=== PATIENT | female | born 1990 | race Caucasian/White ===

== ENCOUNTER → 2021-12-02 | Outpatient (CLI) | payer BC, SELFPAY ==
--- NOTE | 2021-12-02 15:04 | CT_ITS ---
STUDY: CT ABDOMEN AND PELVIS WITH CONTRAST REASON FOR EXAM: Female, 31 years old. Change in bowel pattern. Bloating for one year. Inconsistent bowel habits since IUD placed. The IUD is since been removed. RADIATION DOSAGE (If Supplied By Facility): CTDIvol = ( 12.63 ) mGy, DLP = ( 765.07 ) mGycm TECHNIQUE: Transaxial images were obtained from the dome of the diaphragm to the symphysis pubis with oral contrast. 100 mL of ISOVUE 370 was administered. Sagittal and coronal images were reconstructed. Individualized dose optimization techniques were used for this CT. COMPARISON: None. FINDINGS: The visualized lung bases are unremarkable. The visualized portions of the heart are within normal limits. Normal liver. Normal gallbladder and extrahepatic biliary system. Normal spleen. Normal pancreas. Normal bilateral adrenal glands. Normal right kidney. Normal left kidney. Normal ureters. Normal visualized stomach. Normal small intestine. Feces seen throughout nondistended colon. There is no mass or obstruction. The appendix is visualized and appears normal. Normal abdominal aorta. Normal inferior vena cava. Normal retroperitoneum. Normal urinary bladder. Normal uterus. Question fluid lower uterine cervical canal. No evidence of mass. There is a 1.3 cm cyst versus dominant follicle in the left ovary. Normal right ovary. No pelvic lymphadenopathy. No free air or free cavity. Normal abdominal wall. Minimal degenerative changes of the lumbar spine. CT/Abdomen/Pelvis WITH Contrast IMPRESSION: 1. Increased colonic feces. Question constipation. 2. Left ovarian cyst versus dominant follicle. 3. Question prominence lower uterine and cervical canal. Question fluid. 4. Otherwise normal CT of the abdomen and pelvis. Electronically Signed: Mario Prakash DO at 18:49 EDT ,
[2021-12-02 15:35] LABS: CREATININE FINGERSTICK < 0.9 mg/dL (0.55-1.02); EGFR FINGERSTICK > 60.0000 mL/min (>60)
[2021-12-02 17:20] LABS: Bilirubin, Direct 0.32 mg/dL (0.00-0.30)
[2021-12-04 15:08] LABS: Endomysial Antibody IgA Negative (Negative)
[2021-12-05 17:47] LABS: Immunoglobulin A 126 mg/dL (87-352); t-Transglutaminase IgA <2 U/mL (0-3)
== END | disposition home or self-care (01) ==
PROVIDERS: PCP Student in an Organized Health Care Education/Training Program; Visit Provider Nurse Practitioner Adult Health
DX: R19.8 Other specified symptoms and signs involving the digestive system and abdomen (principal); R10.9 Unspecified abdominal pain; E80.6 Other disorders of bilirubin metabolism; Z80.0 Family history of malignant neoplasm of digestive organs
CPT/HCPCS: 36415; 74177; 82247; 82248; 82784; 83516; 86255; Q9967

== ENCOUNTER 2022-02-13 06:18 | Day surgery (SDC) | payer BC, SELFPAY ==
[2022-02-13] MEDS: Lactated Ringers 1,000 ML 15 ML IV (06:51)
[2022-02-13 06:53] VITALS: BP 125/80; PULSE 90; RESP 18; TEMP 36.6; O2SAT 98; BMI 29.7
[2022-02-13 07:13] LABS: Internal QC Validated? YES +Cl - CLEAR BKGD; Pregnancy, Serum, hCG Quali. NEGATIVE Negative
--- NOTE | 2022-02-13 07:28 | HP.PCM_ITS ---
History and Physical Date of Admission: 02/13/22 31 F who presents to the office today for alternating diarrhea and constipation. She was also having abdominal bloating but that resolved when IUD was removed. For the bowels she has tried probiotic, collagen, bone broth w/o relief. She uses [employer], she notes she doesn't get enough fiber. Intermittent heartburn, no acid reflux, no dysphagia. Bloating was upper abdomen, felt hard to the touch. No abdominal pain since the bloating resolved. Bloating now usually only with period. Issues with constipation since childhood. Diarrhea began about 1.5 yrs ago. Sometimes feels like diarrhea is on top of constipation. Can have both diarrhea and constipation on the same day. Has BM 2-3x per day on a good day, could be more with diarrhea, or a couple of days between BMs. With diarrhea the stool can be watery and loose. No melena or hematochezia. Can have cramps with the diarrhea. Weight is stable. 08/23/21 RUQ US negative for GI concerns 11/13/21 HIDS gallbladder ejection fraction 85%, trace enterogastric reflux 10/25/2021 labs: Normal CBC, total bilirubin 2.0, alk phos 64, AST 16, ALT 18, TSH 0.89, B12 612, vitamin D 39, Father has stomach cancer, adenocarcinoma, getting chemo which is keeping it under control, he was told his children should have genetic testing so she is re questing that PMH: HTN, hyperbilirubinemia, hyperlipidemia PSH: ROS Const Constitutional: Positive for fatigue; No fever(s), frequent falls, headache(s) or weight change ENT ENT: No headache(s) or difficulty swallowing Cardio Cardiology: No leg pain with exertion Gastro GI: Positive for abdominal pain, bloating, constipation and diarrhea; No change in bowel habits, heartburn, difficulty swallowing, Vomiting blood/hematemesis, Blood in stool, nausea/dyspepsia or vomiting Musc Musculoskeletal: No abnormal gait, joint pain, back pain, joint swelling, muscle cramps, muscle weakness, numbness, stiffness, tingling, Arthritis, sciatica, leg pain at night or leg pain with exertion Skin Skin: No dry skin, lesions, itchy eyes or rash Neuro Neurology: No abnormal gait, dizziness, frequent falls, headache(s), numbness, tingling, tremor(s), Increased tone in limbs, paralysis or seizures Psych Psychiatric: No anxiety, No depression, No paranoia, No Behavioral Problems, No Compulsive Behavior, No hyperactivity, No inattentiveness, No obsessions/compulsions, No Temper Tantrums and No suicidal ideation Endo Endocrine: Positive for fatigue; No weight change Aller/Imm Allergy/Immunologic: No itchy eyes Ford/Lymp Hematologic/Lymphatic: No easy bleeding or easy bruising Exam Const General: cooperative, healthy appearing and comfortable Nutritional Appearance: overweight Orientation: alert, awake and oriented x3 HENMT Head: normal to inspection Eyes General: appearance normal, both eyes and all related structures Neck Neck: normal visual inspection Resp Effort & Inspection: normal respiratory effort GI Inspection: normal to inspection Palpation: soft, no hepatosplenomegaly, no masses and nontender Quality Reporting Tobacco Screening ([facility]) Smoking Status: Former smoker Assessment and Plan Assessment and Plan (1) Altered bowel function: ?Status:?Acute ?Plan: 31-year-old female with alternating diarrhea and constipation.? Long history of constipation but the diarrhea is newer.? She has intermittent heartburn.? Her father has stomach cancer, possibly adenocarcinoma.? She has intermittent abdominal bloating and abdominal pain.? She has a normal right upper quadrant ultrasound, normal HIDA scan other than trace enterogastric reflux. CT abdomen pelvis with oral and IV EGD and colonoscopy Labs to be ordered: Total bili and direct? bili, celiac Will recommend genetic counselor for genetic testing considering her father's history of stomach cancer Try metamucil as first-line therapy to help with alternating diarrhea and constipation (2) Abdominal pain: ?Status:?Acute (3) Hyperbilirubinemia: ?Status:?Acute ?Plan: Possibility of Gilbert's syndrome, will check total bilirubin and conjugated b ilirubin (4) FH: stomach cancer: ?Status:?Acute ?Plan: Will recommend referral to genetic counselor for their advice on testing related to her father's history of stomach cancer ? ? ? Orders: Orders Bilirubin, Direct Today E80.6 - Other disorders of bilirubin metabolism, R19.8 - Other specified symptoms and signs involving the digestive system and abdomen ? Total Bilirubin Today E80.6 - Other disorders of bilirubin metabolism, R19.8 - Other specified symptoms and signs involving the digestive system and abdomen ? Celiac Disease Profile Today E80.6 - Other disorders of bilirubin metabolism, R19.8 - Other specified symptoms and signs involving the digestive system and abdomen ? Abdomen/Pelvis WITH Contrast 11/25/21 E80.6 - Other disorders of bili tom metabolism, R10.9 - Unspecified abdominal pain, R19.8 - Other specified symptoms and signs involving the digestive system and abdomen, Z80.0 - Family history of malignant neoplasm of digestive organs ? I have examined the patient and the H&P has been reviewed. There are no clinical changes since date of exam.
--- NOTE | 2022-02-13 07:30 | COLBX_PTH ---
PATIENT: ESTEBAN CLEANING #:[id number] LOC: EN U#:[id number] AGE/SX: 31/F ROOM: RE02/13/[address]: Dr. Dmitriy Trinh DO : 1990 BED: DIS: 02/13/2022 SPEC #: [id number] RECD: 02/13/22 13:19 STATUS: CARIDAD CONRAD #: [id number] JULIANA: 02/13/22 07:[address]: Dmitriy Trinh DEPT: SURGICAL PATHOLOGY RECD BY: Lizbet White ENTERED: 02/14/22 09:06 SP TYPE: COLON BX OTHR DR: Dr. Anthony Little DO Tissues: A - Duodenum, NOS B - Gastric mucous membrane C - Esophagus, NOS D - Ileum, NOS E - COLON BIOPSY Procedures: Special Stain Group II Surgery Specimen Level IV Alcian Blue/PAS (control) HEADER OPERATION: [place] [place] PRE-OP DIAGNOSIS: Altered bowel function, abdominal pain, hyperbilirubinemia TISSUE SUBMITTED: A ? Duodenum biopsy, B ? Antrum biopsy for histo and H. pylori, C ? Distal esophagus biopsy, D ? Terminal ileum, E ? Random colonic MICROSCOPIC DIAGNOSIS A. Duodenum, biopsy: No pathologic change. B. Gastric antrum, biopsy: Chronic gastritis. See comment. C. Distal esophagus, biopsy: Gastroesophageal junctional mucosa with mild chronic inflammation. Focal changes of reflux. No evidence of goblet cell metaplasia. See comment. D. Terminal ileum, biopsy: No pathologic change. E. Colon, random biopsy: Melanosis coli. AM:jes 02/18/2022 COMMENT B. The results of immunohistochemistry for Helicobacter pylori will be reported separately ([id number]). C. Alcian blue/PAS stain with matched control supports the above diagnosis. MICROSCOPIC DESCRIPTION Slides are reviewed. GROSS DESCRIPTION A - Received in fixative is one container labeled with the patient's name and designated duodenum biopsy. The specimen consists of one irregular fragment of light cruz soft tissue that measures 0.3 x 0.3 x 0.1 cm. The specimen is totally submitted in one cassette. B - Received in fixative is one container labeled with the patient's name and designated antrum biopsy. The specimen consists of one irregular fragment of light cruz soft tissue that measures 0.6 x 0.3 x 0.1 cm. The specimen is totally submitted in one cassette. C - Received in fixative is one container labeled with the patient's name and designated distal esophagus biopsy. The specimen consists of multiple irregular fragments of light cruz soft tissue that in aggregate measure 1 x 0.4 x 0.1 cm. The specimen is totally submitted in one cassette. D - Received in fixative is one container labeled with the patient's name and designated terminal ileum biopsy. The specimen consists of multiple irregular fragments of light cruz soft tissue that in aggregate measure 1 x 0.3 x 0.1 cm. The specimen is totally submitted in one cassette. E - Received in fixative is one container labeled with the patient's name and designated random colonic biopsy. The specimen consists of multiple irregular fragments of light cruz soft tissue that in aggregate measure 2 x 0.5 x 0.1 cm. The specimen is totally submitted in one cassette. / SJ:rg 02/14/2022 TC:3 CPT: 75609 x5, 75715
--- NOTE | 2022-02-13 07:30 | IMM_PTH ---
PATIENT: ESTEBAN CLEANING #:[id number] LOC: ANNY U#:[id number] AGE/SX: 31/F ROOM: RE02/13/[address]: Dr. Dmitriy Trinh DO : 1990 BED: DIS: 02/13/2022 SPEC #: [id number] RECD: 02/14/22 08:48 STATUS: CARIDAD RERocio #: [id number] JULIANA: 02/13/22 07:[address]: Dmitriy Trinh DEPT: IMMUNOHISTOCHEMISTRY RECD BY: Kerry Justice ENTERED: 02/14/22 08:48 SP TYPE: IMMUNO OTHR DR: Dr. Anthony Little DO Tissues: B - Stomach, NOS Procedures: H Pylori (initial) PHYSICIAN & INSTITUTION [place] [id number] SPECIMEN INFORMATION: Tissue Source: B ? Antrum biopsy Clinical Info: Altered bowel function, abdominal pain, hyperbilirubinemia Specimen Number: [id number] CPT code: 54974 METHODOLOGY: Deparaffinized sections of prefer/formalin-fixed tissue or PAP/DQ stained slides are incubated with monoclonal/polyclonal antibodies/oligonucleotide probes. Localization is made via biotin free immunoperoxidase method. Appropriate controls are performed and reacted as expected. Results on target cell population are indicated in the following table: RESULTS: ANTIBODY / CLONE RESULT Block B H Pylori (polyclonal) negative These tests were developed and their performance characteristics determined by [facility]. They may not have been cleared or approved by the U.S. Food and Drug Administration. The FDA has determined that such clearance or approval is not necessary. The above immunohistochemical/dualISH markers are ordered and reviewed by the Pathologist. INTERPRETATION: B. Antrum, biopsy: Negative for Helicobacter pylori organisms. AM:jes 02/18/2022
[2022-02-13 07:56] VITALS: BP 125/80; BP 99/73; PULSE 96; RESP 16; TEMP 36.9; O2SAT 96
[2022-02-13 08:00] VITALS: BP 102/83; BP 125/80; PULSE 90; RESP 16; O2SAT 95
--- NOTE | 2022-02-13 08:00 | OP.EGD_ITS ---
Patient Name: Laura Cunningham Procedure Date: 02/13/2022 7:23 AM Date of : 1990 Age: 31 Procedure: Upper GI endoscopy Indications: Epigastric abdominal pain, Suspected esophageal reflux, Failure to respond to medical treatment Providers: Dmitriy Trinh DO Referring MD: Anthony Little Do Medicines: Monitored Anesthesia Care Patient Profile: This is a 31 year old female. Refer to note in patient chart for documentation of history and physical. Patient has symptoms of chronic abdominal cramping, chronic abdominal distention, chronic global abdominal pain, chronic dyspepsia and chronic nausea. Complications: No immediate complications. Procedure: Pre-Anesthesia Assessment: - Prior to the procedure, a History and Physical was performed, and patient medications and allergies were reviewed. The risks and benefits of the procedure and the sedation options and risks were discussed with the patient. All questions were answered and informed consent was obtained. Patient identification and proposed procedure were verified by the physician in the pre-procedure area. Mental Status Examination: alert and oriented. Airway Examination: normal oropharyngeal airway and neck mobility. Respiratory Examination: clear to auscultation. CV Examination: normal. Prophylactic Antibiotics: The patient does not require prophylactic antibiotics. Prior Anticoagulants: The patient has taken no previous anticoagulant or antiplatelet agents. ASA Grade Assessment: II - A patient with mild systemic disease. After reviewing the risks and benefits, the patient was deemed in satisfactory condition to undergo the procedure. The anesthesia plan was to use monitored anesthesia care (MAC). Immediately prior to administration of medications, the patient was re-assessed for adequacy to receive sedatives. The heart rate, respiratory rate, oxygen saturations, blood pressure, adequacy of pulmonary ventilation, and response to care were monitored throughout the procedure. The physical status of the patient was re-assessed after the procedure. After obtaining informed consent, the endoscope was passed under direct vision. Throughout the procedure, the patient's blood pressure, pulse, and oxygen saturations were monitored continuously. The pediatric colonoscope was introduced through the mouth, and advanced to the second part of duodenum. The upper GI endoscopy was accomplished without difficulty. The patient tolerated the procedure well. Scope In: 7:33:43 AM Scope Out: 7:38:30 AM Total Procedure Duration Time 0 hours 4 minutes 47 seconds Findings: LA Grade A (one or more mucosal breaks less than 5 mm, not extending between tops of 2 mucosal folds) esophagitis with no bleeding was found 37 to 38 cm from the incisors. Biopsies were taken with a cold forceps for histology. Verification of patient identification for the specimen was done. Estimated blood loss was minimal. A small hiatal hernia was present. Patchy mildly erythematous mucosa without bleeding was found in the gastric antrum. Biopsies were taken with a cold forceps for histology. Verification of patient identification for the specimen was done. Estimated blood loss was minimal. Mildly erythematous mucosa without active bleeding and with no stigmata of bleeding was found in the first portion of the duodenum. Biopsies were taken with a cold forceps for histology. Verification of patient identification for the specimen was done. Estimated blood loss was minimal. Impression: - LA Grade A reflux esophagitis. Biopsied. - Small hiatal hernia. - Erythematous mucosa in the antrum. Biopsied. - Erythematous duodenopathy. Biopsied. Recommendation: - Discharge patient to home. - Resume previous diet. - Continue present medications. -Protonix 40 mg p.o. twice daily x4 weeks, then once a day for 4 weeks. - Await pathology results. Procedure Code(s): --- Professional --- 20371, Esophagogastroduodenoscopy, flexible, transoral; with biopsy, single or multiple CPT copyright 2017 [employer]. All rights reserved. The codes documented in this report are preliminary and upon refueling ramp attendant review may be revised to meet current compliance requirements. Dmtiriy Trinh DO 02/13/2022 8:00:06 AM This report has been signed electronically. Number of Addenda: 0 Note Initiated On: 02/13/2022 7:23 AM
--- NOTE | 2022-02-13 08:00 | OP.CCLET_ITS ---
02/13/2022 Anthony Little Do Re : Upper GI endoscopy procedure for Laura Cunningham [place] This procedure was performed on January. My impressions and recommendations are as follows: Impressions : - LA Grade A reflux esophagitis. Biopsied. - Small hiatal hernia. - Erythematous mucosa in the antrum. Biopsied. - Erythematous duodenopathy. Biopsied. Recommendations : - Discharge patient to home. - Resume previous diet. - Continue present medications. -Protonix 40 mg p.o. twice daily x4 weeks, then once a day for 4 weeks. - Await pathology results. My findings are described in the full procedure note, which is enclosed. If I can be of further assistance, please feel free to contact me at . Sincerely, Dmitriy Trinh, 02/13/2022 8:00:06 AM This report has been signed electronically.
--- NOTE | 2022-02-13 08:03 | OP.CCLET_ITS ---
02/13/2022 Anthony Little Do Re : Colonoscopy procedure for Laura Cunningham [place] This procedure was performed on January. My impressions and recommendations are as follows: Impressions : - Congested mucosa in the sigmoid colon, in the descending colon, at the splenic flexure and in the ascending colon. Biopsied. - The examined portion of the ileum was normal. Biopsied. Recommendations : - Discharge patient to home. - Resume previous diet. - Continue present medications. - Await pathology results. - Repeat colonoscopy in 10 years for screening purposes. My findings are described in the full procedure note, which is enclosed. If I can be of further assistance, please feel free to contact me at . Sincerely, Dmitriy Trinh, 02/13/2022 8:02:41 AM This report has been signed electronically.
--- NOTE | 2022-02-13 08:03 | OP.COLON_ITS ---
Patient Name: Laura Cunningham Procedure Date: 02/13/2022 7:38 AM Date of : 1990 Age: 31 Procedure: Colonoscopy Indications: Generalized abdominal pain, Clinically significant diarrhea of unexplained origin Providers: Dmitriy Trinh DO Referring MD: Anthony Little Do Medicines: Monitored Anesthesia Care Patient Profile: This is a 31 year old female. Refer to note in patient chart for documentation of history and physical. Patient has symptoms of chronic abdominal cramping, chronic abdominal distention, chronic global abdominal pain, chronic dyspepsia and chronic nausea. Last Colonoscopy: none. The patient's first colonoscopy is today. Complications: No immediate complications. Procedure: Pre-Anesthesia Assessment: - Prior to the procedure, a History and Physical was performed, and patient medications and allergies were reviewed. The risks and benefits of the procedure and the sedation options and risks were discussed with the patient. All questions were answered and informed consent was obtained. Patient identification and proposed procedure were verified by the physician in the pre-procedure area. Mental Status Examination: alert and oriented. Airway Examination: normal oropharyngeal airway and neck mobility. Respiratory Examination: clear to auscultation. CV Examination: normal. Prophylactic Antibiotics: The patient does not require prophylactic antibiotics. Prior Anticoagulants: The patient has taken no previous anticoagulant or antiplatelet agents. ASA Grade Assessment: II - A patient with mild systemic disease. After reviewing the risks and benefits, the patient was deemed in satisfactory condition to undergo the procedure. The anesthesia plan was to use monitored anesthesia care (MAC). Immediately prior to administration of medications, the patient was re-assessed for adequacy to receive sedatives. The heart rate, respiratory rate, oxygen saturations, blood pressure, adequacy of pulmonary ventilation, and response to care were monitored throughout the procedure. The physical status of the patient was re-assessed after the procedure. After I obtained informed consent, the scope was passed under direct vision. Throughout the procedure, the patient's blood pressure, pulse, and oxygen saturations were monitored continuously. The pediatric colonoscope was introduced through the anus and advanced to the cecum, identified by appendiceal orifice and ileocecal valve. The colonoscopy was performed without difficulty. The patient tolerated the procedure well. The quality of the bowel preparation was good. Scope In: 7:39:51 AM Scope Withdrawal Time 0 hours 8 minutes 51 seconds Scope Out: 7:51:37 AM Total Procedure Duration Time 0 hours 11 minutes 46 seconds Findings: The perianal and digital rectal examinations were normal. An area of mildly congested mucosa was found in the sigmoid colon, in the descending colon, at the splenic flexure and in the ascending colon. Biopsies were taken with a cold forceps for histology. Verification of patient identification for the specimen was done. Estimated blood loss was minimal. The terminal ileum appeared normal. Biopsies were taken with a cold forceps for histology. Verification of patient identification for the specimen was done. Estimated blood loss was minimal. Impression: - Congested mucosa in the sigmoid colon, in the descending colon, at the splenic flexure and in the ascending colon. Biopsied. - The examined portion of the ileum was normal. Biopsied. Recommendation: - Discharge patient to home. - Resume previous diet. - Continue present medications. - Await pathology results. - Repeat colonoscopy in 10 years for screening purposes. Procedure Code(s): --- Professional --- 99912, Colonoscopy, flexible; with biopsy, single or multiple CPT copyright 2017 [employer]. All rights reserved. The codes documented in this report are preliminary and upon product support representative review may be revised to meet current compliance requirements. Dmitriy Trinh DO 02/13/2022 8:02:41 AM This report has been signed electronically. Number of Addenda: 0 Note Initiated On: 02/13/2022 7:38 AM
[2022-02-13 08:05] VITALS: BP 125/80; BP 126/81; PULSE 75; RESP 16; O2SAT 96
[2022-02-13 08:11] VITALS: BP 114/86; BP 125/80; PULSE 68; RESP 16; TEMP 36.8; O2SAT 98
[2022-02-13 08:38] VITALS: BP 125/80
== END 2022-02-13 08:37 | disposition home or self-care (01) ==
LOC: EN 06:22 → AC 06:23
PROVIDERS: Anesthesiology; PCP Student in an Organized Health Care Education/Training Program; Referring Provider Student in an Organized Health Care Education/Training Program; Visit Provider Internal Medicine Gastroenterology
PROC: 0DJD8ZZ Inspection of Lower Intestinal Tract, Via Natural or Artificial Opening Endoscopic (ICD-10-PCS; CPT 45378; principal; 2022-02-13 07:25)
DX: K29.50 Unspecified chronic gastritis without bleeding (principal); K63.89 Other specified diseases of intestine; K44.9 Diaphragmatic hernia without obstruction or gangrene; K21.00 Gastro-esophageal reflux disease with esophagitis, without bleeding; I10 Essential (primary) hypertension; Z79.899 Other long term (current) drug therapy; Z80.0 Family history of malignant neoplasm of digestive organs; Z87.891 Personal history of nicotine dependence
CPT/HCPCS: 45380; 43239; 84703; 88305; 88313; 88342; J7120; J2405

== ENCOUNTER → 2022-07-30 | Outpatient (CLI) | payer BC, SELFPAY ==
[2022-07-30 12:34] LABS: Absolute Lymphocyte Count 1.97 X10^3/uL (0.83-4.51); Absolute Neutrophil Count 3.1 X10^3/uL (2.0-7.7); Basophil# 0.04 X10^3/uL; Basophil% 0.7 % (0-1); Eosinophil# 0.16 X10^3/uL; Eosinophils% 2.8 % (0-5); Hematocrit 39.9 % (37-47); Hemoglobin 14.3 g/dL (12.0-15.0); Lymphocyte # 1.97 X10^3/ul (0.83-4.51); Lymphocyte % 34.2 % (19-41); Mean Corp Hgb Conc 35.8 g/dL (32-36); Mean Corpuscular Volume 92.1 fL (81-99); Mean Platelet Vol. 9.7 fl (6.2-12.0); Monocyte# 0.51 X10^3/uL; Monocyte% 8.9 % (0-10); NRBC Flagged by Analyzer 0 % (0-5); Neutrophil # 3.07 X10^3/uL (2.7-7.7); Neutrophil % 53.2 % (47-70); Platelet Count 232 K/mm3 (150-450); RBC Distribution Width CV 11.5 % (11.6-14.6); RET-HE 35.4 pg (30-35); Red Blood Count 4.33 M/mm3 (4.2-5.4); Reticulocyte Count 1.93 % (0.5-1.5); White Blood Count 5.8 K/mm3 (4.4-11.0)
[2022-07-30 13:14] LABS: ALB/GLOB Ratio 1.1 RATIO (0.9-2.4); AST(SGOT) 22 U/L (15-37); Alanine Aminotransfer ALT/SGPT 28 U/L (13-56); Albumin, Serum 4.1 g/dL (3.2-5.0); Alkaline Phosphatase 63 U/L (45-117); Anion Gap 10 (5-15); BUN 11 mg/dL (7-18); BUN/Creat Ratio 15.3 RATIO (10-20); Bilirubin, Direct 0.24 mg/dL (0.00-0.30); Calcium,Total 9.4 mg/dL (8.5-10.1); Chloride 104 mmol/L (98-107); Creatinine, Serum 0.72 mg/dL (0.55-1.02); EST Glomerular Filtration Rate 99 mL/min (>60); Est Glom Filt Rate - Afr Amer 119 mL/min (>60); Globulin 3.6 g/dL (2.2-4.2); Glucose 97 mg/dL (74-106); LDH 195 U/L (84-246); Protein, Total 7.7 g/dL (6.4-8.2); Sodium Level 136 mmol/L (136-145)
[2022-07-31 05:07] LABS: Haptoglobin 148 mg/dL (33-278)
== END | disposition home or self-care (01) ==
PROVIDERS: PCP Student in an Organized Health Care Education/Training Program; Referring Provider Nurse Practitioner Adult Health; Visit Provider Nurse Practitioner Adult Health
DX: E80.6 Other disorders of bilirubin metabolism (principal)
CPT/HCPCS: 36415; 80053; 82248; 83010; 83615; 85025; 85045

== ENCOUNTER 2023-03-09 07:26 | Day surgery (SDC) | payer BC, SELFPAY ==
--- OUTSIDE RECORDS SUMMARY | 2023-03-09 07:31 | XMS RPT_ITS | CCD ---
Author Name Unknown Address [address] [place] [address] Organization [facility] Care Team Providers Care Experimental Technician Name Role Phone VIVIANE MENDEZ, DR BONILLA Primary Care Physician [phone] Chad Pan DO Primary Care Provider [phone] Anuj Umanzor MD Unavailable Brendan Kenney CGC Unavailable UnavailCHAD Batres Primary Care Unavailable CHAD PAN Referring Unavailable BRENDAN KENNEY Attending Unavailable ANUJ UMANZOR Attending Unavailable ANUJ UMANZOR Referring Unavailable CHAD PAN Primary Care Unavailable VIVIANE MENDEZ, DR BONILLA Attending Unavailable ROMAR DO, DR BONILLA Primary Care Unavailable ROMAR DO, DR BONILLA Attending Unavailable VIVIANE MENDEZ, DR BONILLA Primary Care Unavailable VIVIANE MENDEZ, DR BONILLA Primary Care Unavailable JALYN OTERO-JENNIFER ELDER Attending Lanette vailable Medications Current Medications Medication Drug Class(es) Dates Sig (Normalized) Sig (Original) amLODIPine 5 mg oral tablet (1 source) Dihydropyridine Calcium Channel John Start: 01-29-2021 amLODIPine 5 mg oral tablet Dose : 5 mg = 1 tab(s), Oral, qDay, Okay to substitute capsules if covered by insurance, # 90 tab(s), 0 Refill(s), Pharmacy: [facility], 161.5, cm, 11/06/20 8:01:00 EDT, Height, kg, 11/06/20 8:01:00 EDT, Dosing Weight Start Date: 01/29/21 Status: Ordered amLODIPine 5 mg / benazepril hydrochloride 10 mg oral capsule (3 sources) Dihydropyridine Calcium Channel John, Angiotensin Converting Enzyme Inhibitor Start: 03-14-2022 End: 09-10-2022 take 1 capsule by mouth once daily amlodipine-benaz epril 5 mg-10 mg oral capsule Dose = 1 cap(s), Oral, qDay, # 90 cap(s), 1 Refill(s), Pharmacy: [facility] #[id number], 161.5, cm, 03/11/22 16:06:00 EST, Height, kg, 03/11/22 16:06:00 EST, Dosing Weight Start Date: 03/14/22 Stop Date: 09/10/22 Status: Ordered Completed/Discontinued Medications Medication Drug Class(es) Dates Sig (Normalized) Sig (Original) hydrOXYzine hydrochloride 50 mg oral tablet (4 sources) Antihistamine Start: 05-16-2020 End: 05-23-2020 hydrOXYzine hydrochloride 50 mg oral tablet Dose : 50 mg = 1 tab(s), Oral, QID, PRN as needed for anxiety, Do not drive, operate heavy machinery, or drink alcohol while on this medication., # 28 tab(s), 0 Refill(s), Pharmacy: [facility] 161, cm, 05/16/20 10:56:00 EDT, Height, kg,... 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 Anxiety disorders (4 sources) Panic attack 05-21-2020 Chronic Cardiac dysrhythmias (4 sources) Palpitations 04-25-2020 Episodic Conditions associated with dizziness or vertigo (4 sources) Lightheadedness 04-25-2020 Episodic Diabetes mellitus without complication (4 sources) Hyperglycemia 04-29-2020 Episodic Diseases of mouth; excluding dental (4 sources) Lesion of oral mucosa 08-12-2019 Episodic Disorders of lipid metabolism (7 sources) Hyperlipidemia; Translations: [Mixed hyperlipidemia] 01-28-2019 Chronic Results Test Name Value Interpretation Reference Range Facil ity Encounters Encounter Date Encounter Type Care Provider Facility Start: 09-17-[address] CHAD PAN DO Facili ty:B Start: 07-19-2022 End: 07-20-[address] CHAD PAN DO Facility:B Start: 07-19-2022 End: 07-19-[address] CHAD PAN DO [facility] Start: 05-22-2022 End: 05-23-2022 ambulatory ANUJ UMANZOR [facility] Start: 05-22-2022 End: 05-22-2022 Subsequent hospital visit by physician Anuj Umanzor MD Work Phone: [facility] Procedures Date Procedure Procedure Detail Performing Clinician Start: 05-29-[address] CHAD PAN DO Colonoscopy DR CHAD Barker Dilation of urethra DR CHAD PAN DO Esophagogastroduoden oscopy gastric outlet reduction DR CHAD PAN DO Fracture of upper limb (disorder) DR CHAD PAN DO Plan of Treatment Date Care Activity Detail Author Start: 06-06-2022 End: 06-06-2022 Professional / ancillary services management 06/06/2022 1:00 PM EDT Telehealth Ancillary [facility] [address] [place] [address] Brendan Kenney, [facility] [place] [address] [facility] Start: 10-17-2021 FLU (#1) FLU (#1) [facility] Start: 2009 Microscopic observat ion [Identifier] in Cervix by Cyto stain Pap Smear [facility] Start: 2004 MenB (1 of 2 - MenB 2-Dose Series Bexsero) MenB (1 of 2 - MenB 2-Dose Series Bexsero) [facility] Start: 07-28-1995 Tetanus Diphtheria a nd Pertussis Vaccines (1 - Tdap) Tetanus Diphtheria and Pertussis Vaccines (1 - Tdap) [facility] Start: 1989 MMR (1 of 1 - Standa rd series) MMR (1 of 1 - Standard series) [facility] Start: 01-26-1989 COVID-19 (#1) COVID-19 (#1) [facility] Start: 1988 Hepatitis B (1 of 3 - 3-dose series) Hepatitis B (1 of 3 - 3-dose series) [facility] Genetic Sendout: CDH 1 single gene Genetic Sendout: CDH1 single gene Lab Routine Family history of genetic disease 05/22/2022 3:24 PM EDT [facility] Work Phone: Immunizations Immunization Date Immunization Notes Care Provider Fa gary 02-17-2016 tetanus toxoid, redu libby diphtheria toxoid, and acellular pertussis vaccine, adsorbed DR CHAD PAN DO [facility] 01-16-2016 tetanus toxoid, redu libby diphtheria toxoid, and acellular pertussis vaccine, adsorbed DR CHAD PAN DO [facility] 04-12-2001 hepatitis B pediatri c vaccine DR CHAD PAN DO [facility] 11-09-2000 hepatitis B pediatri c vaccine DR CHAD PAN DO [facility] 09-30-2000 hepatitis B pediatri c vaccine DR CHAD PAN DO [facility] 09-30-2000 measles/mumps/rubell a virus vaccine DR CHAD PAN DO [facility] 10-29-1989 hepatitis B pediatri c vaccine DR CHAD PAN DO [facility] 10-29-1989 measles/mumps/rubell a virus vaccine DR CHAD PAN DO [facility] Payers Date Payer Category Payer Unknown [id number] 2018 Unknown [address] [address] UE PREFERRED [id number] 2018-Present [address] [place] [address] [id number] 1988 Unknown [id number] 1990 Unknown [id number] 1988 Unknown [id number] 1988 Unknown [id number] 1990 Unknown [id number] Social History Date Type Detail Facility Start: 08-07-2020 End: 03-13-2022 Ex-smoker (finding) [facility] Evaluation + Plan note Laboratory Note Date & Type Note Facility Evaluation + Plan note Future Appointments Appointment Date:04/17/2021 04:30:00 PM Scheduled Provider:CHAD PAN DO Location:[facility] Appointment Type:PC OV Future Scheduled TestsUrine Culture 11/06/20 [facility] Evaluation + Plan note Radiology Note Date & Type Note Facility Evaluation + Plan note Future Appointments Appointment Date:07/18/2021 03:00:00 PM Scheduled Provider:CHAD PAN DO Location:[facility] Appointment Type:PC OV Future Scheduled TestsCT Abdomen and Pelvis w/ contrast 03/19/21 [facility] Evaluation + Plan note Radiology Note Date & Type Note Facility Evaluation + Plan note Future Appointments Appointment Date:03/11/2022 04:00:00 PM Scheduled Provider:CHAD PAN DO Location:[facility] Appointment Type:PC Wellness Annual Future Scheduled TestsCT Abdomen and Pelvis w/ contrast 03/19/21 [facility] Evaluation + Plan note Note Date & Type Note Facility Evaluation + Plan note Future Appointments Appointment Date:09/09/2022 03:00:00 PM Scheduled Provider:CHAD PAN DO Location:[facility] Appointment Type:PC OV [facility] Evaluation note Note Date & Type Note Facility documented in this encounter [facility] course Narrative Note Date & Type Note Facility Hospital course Narrative No data available for this section [facility] Hospital Discharge instructions Note Date & Type Note Facility Hospital Discharge instructions No data available for this section [facility] Progress note Note Date & Type Note Facility Progress note No data available for this section [facility] Summary Purpose Family History No Family History Records FoundNo Family History Records FoundNo Family History Records Found Advance Directives No Advanced Directives Records FoundNo Advanced Directives Records FoundNo Advanced Directives Records Found Additional Source Comments INFORMATION SOURCE (unrecogn ized section and content) DATE CREATED AUTHOR AUTHOR'S ORGANIZ ATION 05/29/2022 [facility] DATE CREATED AUTHOR AUTHOR'S ORGANIZ ATION 09/18/2022 [facility] ([place]) Care Team (unrecognized sect ion and content) Care Team (unrecognized sect ion and content) Care Team Personnel Name: CHAD PAN DO Position: P4 Physician - Primary Care Med Service: Active Provider Member Role: Primary Care Physician Address: Address: [address] [place] [address] [facility] [place], [place] [address] Care Team Related Persons Name: MARBIN MARINELLI Name: AMOR MARINELLII Name: MARBIN MARINELLI Name: HARDIK GERMAIN Address: [facility] Address: [address] [place] [id number] Reason for Visit (unrecogniz ed section and content) Referral ID Status Reason Start Date Expiration Date V isits Requested Visits Authorized [id number] [facility] Required 05/22/2022 05/22/2023 1 1 FOR RECORDS PERTAINING TO PATIENTS WHO ARE OR HAVE BEEN ENROLLED IN A CHEMICAL DEPENDENCY/SUBSTANCEABUSE PROGRAM, SOME INFORMATION MAY BE OMITTED. This clinical summary was aggregated from multiple sources. Caution should be exercised in using it in the provision of clinical care. This summary normalizes information from multiple sources, and as a consequence, information in this document may materially change the coding, format and clinical context of patient data. In addition, data may be omitted in some cases. CLINICAL DECISIONS SHOULD BE BASED ON THE PRIMARY CLINICAL RECORDS. [facility]. provides no warranty or guarantee of the accuracy or completeness of information in this document.
[2023-03-09 07:50] VITALS: BP 137/95; PULSE 93; RESP 16; TEMP 36.7; O2SAT 99; BMI 33.0
[2023-03-09 07:55] LABS: Internal QC Validated? YES +Cl - CLEAR BKGD; Pregnancy, Urine Negative Negative; Record Kit Lot#,Urine Preg HCG0000718086
--- NOTE | 2023-03-09 08:06 | HP.PCM_ITS ---
History and Physical Date of Admission: 03/09/23 HPI Chief Complaint: f/u Details: ESTEBAN CLEANING, is a 32 F who presents to the office today for 4 month f/u constipation. Taking daily probiotic and OTC gut supplement with good management of constipation. She had diarrhea when she tried samples of Linzess 72 mcg. Her father has gastric cancer. She tested positive for gene mutation for stomach cancer at [facility], she said recommendation is gastrectomy but she prefers a less invasive approach. Primary care checked labs, bilirubin was 2.2 so we ordered f/u labs. May be Gilbert's but will make sure. 01/2022 EGD revealed LA grade a reflux esophagitis, small hiatal hernia, erythema in the stomach, erythema in the duodenum; biopsies revealed chronic gastritis in the stomach, no pathologic change in the duodenum, negative for Cummings's.? Colonoscopy revealed congested mucosa in the colon, normal terminal ileum; biopsies revealed no pathologic change in the ileum, positive melanosis coli. Negative for celiac disease She has a normal right upper quadrant ultrasound, normal HIDA scan other than trace enterogastric reflux CT abdomen pelvis with oral and IV neg except constipation ROS Const Constitutional: Positive for fatigue; No fever(s), frequent falls, headache(s) or weight change ENT ENT: No headache(s) or difficulty swallowing Cardio Cardiology: No leg pain with exertion Gastro GI: Positive for abdominal pain, bloating and heartburn; No change in bowel habits, constipation, diarrhea, difficulty swallowing, Vomiting blood/hematemesis, Blood in stool, nausea/dyspepsia or vomiting Musc Musculoskeletal: No abnormal gait, joint pain, back pain, joint swelling, muscle cramps, muscle weakness, numbness, stiffness, tingling, Arthritis, sciatica, leg pain at night or leg pain with exertion Skin Skin: No dry skin, lesions, itchy eyes or rash Neuro Neurology: No abnormal gait, dizziness, frequent falls, headache(s), numbness, tingling, tremor(s), Increased tone in limbs, paralysis or seizures Psych Psychiatric: No anxiety, No depression, No paranoia, No Behavioral Problems, No Compulsive Behavior, No hyperactivity, No inattentiveness, No obsessions/compulsions, No Temper Tantrums and No suicidal ideation Endo Endocrine: Positive for fatigue; No weight change Aller/Imm Allergy/Immunologic: No itchy eyes Ford/Lymp Hematologic/Lymphatic: Positive for easy bruising; No easy bleeding Exam Const General: cooperative, healthy appearing and comfortable Orientation: alert, awake and oriented x3 Quality Reporting Tobacco Screening (CMS 138) Smoking Status: Former smoker Assessment and Plan Assessment and Plan (1) FH: stomach cancer: Status: Acute Plan: Her father has gastric cancer, she had genetic testing at [facility] and is positive for genes for hereditary diffuse gastric cancer. Gastrectomy is recommended but she prefers a less severe approach. We will schedule her for EGD in 01/2023 since her last EGD was 01/2022. People who decide not to have surgery to remove the stomach may consider an intensive surveillance schedule with their doctor, with an annual EGD with multiple (more than 30) mucosal biopsies.? (2) Constipation: Status: Chronic Plan: Currently well controlled with probiotic and OTC gut supplement Will treat bloating with doxycycline 100 mg bid x 2 wks for possible SIBO (3) Hyperbilirubinemia: Status: Chronic Plan: Likely Gilbert's but will check cbc, cmp, direct/indirect bili, haptogloben, retic count, LDH Medications: New doxycycline hyclate 100 mg PO BID 28 caps 0RF Discontinued pantoprazole Discontinued Reason: Order Completed 40 mg PO BID 60 tabs 2RF I have examined the patient and the H&P has been reviewed. There are no clinical changes since date of exam.
[2023-03-09] MEDS: Lactated Ringers 1,000 ML 15 ML IV (08:07)
[2023-03-09 08:30] VITALS: BP 124/83; BP 137/95; PULSE 104; RESP 16; TEMP 36.9; O2SAT 96
--- NOTE | 2023-03-09 08:30 | EGD_PTH ---
PATHOLOGY RESULTS PATIENT: LAURA CLEANINGACCT #:[id number] LOC: EN U#:[id number] AGE/SX: 32/F ROOM: RE03/09/[address]: Dr. Dmitriy Trinh DO : 1990 BED: DIS: 03/09/2023 SPEC #: [id number] RECD: 03/09/23 11:12 STATUS: CARIDAD CONRAD #: [id number] JULIANA: 03/09/23 08:[address]: Dmitriy Trinh DEPT: SURGICAL PATHOLOGY RECD BY: Laura Orantes ENTERED: 03/09/23 11:12 SP TYPE: EGD BIOPSY OTHR DR: Dr. Anthony Little DO Tissues: Duodenum, NOS Esophagus, NOS Procedures: Special Stain Group II Surgery Specimen Level IV Alcian Blue/PAS (control) HEADER OPERATION: [place] biopsy PRE-OP DIAGNOSIS: Family history stomach cancer TISSUE SUBMITTED: A - Duodenum biopsy, B - Distal esophagus MICROSCOPIC DIAGNOSIS A. Duodenum, biopsy: Mild nonspecific chronic inflammation. B. Distal esophagus, biopsy: Gastroesophageal junctional mucosa with mild chronic inflammation. No evidence of goblet cell metaplasia. See comment. AM:jes 03/10/2023 COMMENT B. Alcian blue/PAS stain with matched control supports the above diagnosis. MICROSCOPIC DESCRIPTION Slides are reviewed. GROSS DESCRIPTION A - Received in fixative is one container labeled with the patient's name and designated duodenum biopsy. The specimen consists of two irregular fragments of light cruz soft tissue that in aggregate measure 0.8 x 0.4 x 0.1 cm. The specimen is totally submitted in one cassette. B - Received in fixative is one container labeled with the patient's name and designated distal esophagus. The specimen consists of multiple irregular fragments of light cruz soft tissue that in aggregate measure 0.8 x 0.5 x 0.1 cm. The specimen is totally submitted in one cassette. / SJ:jes 03/09/2023 TC:3 [facility]: [id number] x2, [id number]
--- NOTE | 2023-03-09 08:33 | OP.EGD_ITS ---
Patient Name: Laura Cunningham Procedure Date: 03/09/2023 8:04 AM Date of : 1990 Age: 32 Procedure: Upper GI endoscopy Indications: Epigastric abdominal pain, Functional Dyspepsia, Suspected esophageal reflux Providers: Dmitriy Trinh DO Medicines: Monitored Anesthesia Care Patient Profile: This is a 32 year old female. Refer to note in patient chart for documentation of history and physical. Patient has symptoms of chronic epigastric abdominal pain, chronic dyspepsia and chronic nausea. Complications: No immediate complications. Procedure: Pre-Anesthesia Assessment: - Prior to the procedure, a History and Physical was performed, and patient medications and allergies were reviewed. The patient is competent. The risks and benefits of the procedure and the sedation options and risks were discussed with the patient. All questions were answered and informed consent was obtained. Patient identification and proposed procedure were verified by the physician. Mental Status Examination: alert and oriented. Airway Examination: normal oropharyngeal airway and neck mobility. Respiratory Examination: clear to auscultation. CV Examination: normal. Prophylactic Antibiotics: The patient does not require prophylactic antibiotics. Prior Anticoagulants: The patient has taken no anticoagulant or antiplatelet agents. ASA Grade Assessment: II - A patient with mild systemic disease. After reviewing the risks and benefits, the patient was deemed in satisfactory condition to undergo the procedure. The anesthesia plan was to use monitored anesthesia care (MAC). Immediately prior to administration of medications, the patient was re-assessed for adequacy to receive sedatives. The heart rate, respiratory rate, oxygen saturations, blood pressure, adequacy of pulmonary ventilation, and response to care were monitored throughout the procedure. The physical status of the patient was re-assessed after the procedure. After obtaining informed consent, the endoscope was passed under direct vision. Throughout the procedure, the patient's blood pressure, pulse, and oxygen saturations were monitored continuously. The gastroscope was introduced through the mouth, and advanced to the second part of duodenum. The upper GI endoscopy was accomplished without difficulty. Scope In: 8:20:20 AM Scope Out: 8:24:35 AM Total Procedure Duration Time 0 hours 4 minutes 15 seconds Findings: LA Grade B (one or more mucosal breaks greater than 5 mm, not extending between the tops of two mucosal folds) esophagitis with no bleeding was found 35 to 38 cm from the incisors. Biopsies were taken with a cold forceps for histology. Verification of patient identification for the specimen was done. Estimated blood loss was minimal. The entire examined stomach was normal. Localized mildly erythematous mucosa without active bleeding and with no stigmata of bleeding was found in the duodenal bulb. Biopsies were taken with a cold forceps for histology. Verification of patient identification for the specimen was done. Impression: - LA Grade B reflux esophagitis with no bleeding. Biopsied. - Normal stomach. - Erythematous duodenopathy. Biopsied. Recommendation: - Await pathology results. - Continue present medications. - Pantoprazole 20 mg p.o. twice daily Procedure Code(s): --- Professional --- 98725, Esophagogastroduodenoscopy, flexible, transoral; with biopsy, single or multiple CPT copyright 2021 [employer]. All rights reserved. The codes documented in this report are preliminary and upon clinical psychologist review may be revised to meet current compliance requirements. Dmitriy Trinh DO 03/09/2023 8:32:53 AM This report has been signed electronically. Number of Addenda: 0 Note Initiated On: 03/09/2023 8:04 AM
--- NOTE | 2023-03-09 08:33 | OP.CCLET_ITS ---
03/09/2023 Anthony Little Do Re : Upper GI endoscopy procedure for Laura Cunningham Dear [place] This procedure was performed on Thursday, March 09, 2023. My impressions and recommendations are as follows: Impressions : - LA Grade B reflux esophagitis with no bleeding. Biopsied. - Normal stomach. - Erythematous duodenopathy. Biopsied. Recommendations : - Await pathology results. - Continue present medications. - Pantoprazole 20 mg p.o. twice daily My findings are described in the full procedure note, which is enclosed. If I can be of further assistance, please feel free to contact me at . Sincerely, Dmitriy Trinh, 03/09/2023 8:32:53 AM This report has been signed electronically.
[2023-03-09 08:35] VITALS: BP 117/97; BP 137/95; PULSE 108; RESP 16; O2SAT 97
[2023-03-09 08:40] VITALS: BP 125/96; BP 137/95; PULSE 90; RESP 16; O2SAT 100
[2023-03-09 08:44] VITALS: BP 122/86; BP 137/95; PULSE 79; RESP 16; TEMP 36.9; O2SAT 97
[2023-03-09 08:52] VITALS: BP 137/95
== END 2023-03-09 09:02 | disposition home or self-care (01) ==
LOC: EN 07:27 → AC 07:29
PROVIDERS: Anesthesiology; PCP Student in an Organized Health Care Education/Training Program; Referring Provider Student in an Organized Health Care Education/Training Program; Visit Provider Internal Medicine Gastroenterology
PROC: 0DJ08ZZ Inspection of Upper Intestinal Tract, Via Natural or Artificial Opening Endoscopic (ICD-10-PCS; CPT 43235; principal; 2023-03-09 08:25)
DX: K21.00 Gastro-esophageal reflux disease with esophagitis, without bleeding (principal); Z80.0 Family history of malignant neoplasm of digestive organs; K59.00 Constipation, unspecified; E80.7 Disorder of bilirubin metabolism, unspecified; R10.13 Epigastric pain
CPT/HCPCS: 43239; 81025; 88305; 88313; J7120; A4216; J2405

== ENCOUNTER → 2023-03-27 | Outpatient (CLI) | payer BC, SELFPAY ==
[2023-03-27 10:27] LABS: Erythrocyte Sedimentation Rate 12 mm/hr (0-30)
[2023-03-27 10:29] LABS: Absolute Lymphocyte Count 1.97 X10^3/uL (0.83-4.51); Absolute Neutrophil Count 4.5 X10^3/uL (2.0-7.7); Basophil# 0.05 X10^3/uL; Basophil% 0.7 % (0-1); Eosinophil# 0.25 X10^3/uL; Eosinophils% 3.4 % (0-5); Hematocrit 42.5 % (37-47); Hemoglobin 14.9 g/dL (12.0-15.0); Lymphocyte # 1.97 X10^3/ul (0.83-4.51); Lymphocyte % 26.5 % (19-41); Mean Corp Hgb Conc 35.1 g/dL (32-36); Mean Corpuscular Hgb 31.2 pg (27.0-32.0); Mean Corpuscular Volume 88.9 fL (81-99); Mean Platelet Vol. 9.5 fl (6.2-12.0); Monocyte# 0.58 X10^3/uL; Monocyte% 7.8 % (0-10); NRBC Flagged by Analyzer 0 % (0-5); Neutrophil # 4.54 X10^3/uL (2.7-7.7); Neutrophil % 61.2 % (47-70); Platelet Count 275 K/mm3 (150-450); RBC Distribution Width CV 11.4 % (11.6-14.6); RBC Distribution Width SD 36.4 fl (35.1-43.9); Red Blood Count 4.78 M/mm3 (4.2-5.4); White Blood Count 7.4 K/mm3 (4.4-11.0)
[2023-03-27 10:57] LABS: Vitamin B12 707 pg/mL (211-911)
[2023-03-27 11:39] LABS: AST(SGOT) 17 U/L (15-37); Alanine Aminotransfer ALT/SGPT 27 U/L (13-56); Albumin, Serum 3.9 g/dL (3.2-5.0); Alkaline Phosphatase 64 U/L (45-117); Anion Gap 7 (5-15); BUN 11 mg/dL (7-18); BUN/Creat Ratio 14.3 RATIO (10-20); CRP 6.29 mg/L (0.0-3.0); Calcium,Total 9.2 mg/dL (8.5-10.1); Chloride 105 mmol/L (98-107); Creatinine, Serum 0.77 mg/dL (0.55-1.02); EST Glomerular Filtration Rate 91 mL/min (>60); Est Glom Filt Rate - Afr Amer 110 mL/min (>60); Free T3 3.6 pg/mL (2.18-3.98); Globulin 3.9 g/dL (2.2-4.2); Glucose 95 mg/dL (74-106); LDH 198 U/L (84-246); Potassium 3.8 mmol/L (3.5-5.1); Protein, Total 7.8 g/dL (6.4-8.2); Sodium Level 137 mmol/L (136-145); Triglycerides 189 mg/dL
[2023-04-01 21:07] LABS: ACCA 25 units (0-90); AMCA 52 units (0-100); Anti-Parietal Cell AB, QN 2.4 Units (0.0-20.0); Cytoplasmic Ab (C-ANCA) <1:20 titer (Neg:<1:20); Endomysial Antibody IgA Negative (Negative); IgG, Quant 962 mg/dL (586-1602); Immunoglobulin A 150 mg/dL (87-352); Immunoglobulin E 10 IU/mL (6-495); Immunoglobulin G, Subclass 1 540 mg/dL (248-810); Immunoglobulin G, Subclass 2 312 mg/dL (130-555); Immunoglobulin G, Subclass 3 64 mg/dL (15-102); Immunoglobulin G, Subclass 4 61 mg/dL (2-96); Immunoglobulin M 157 mg/dL (26-217); Intrinsic Factor Ab 1.1 AU/mL (0.0-1.1); Perinuclear Ab (P-ANCA) <1:20 titer (Neg:<1:20); gASCA 17 units (0-50); t-Transglutaminase IgA <2 U/mL (0-3)
[2023-04-02 00:06] LABS: Anti-Centromere B Ab <0.2 AI (0.0-0.9); Anti-Chromatin <0.2 AI (0.0-0.9); Anti-Jo <0.2 AI (0.0-0.9); Anti-Scleroderma-70 AB <0.2 AI (0.0-0.9); Anti-dsDNA Ab <1 IU/mL (0-9); Beef <0.10 kU/L (Class 0); Chocolate <0.10 kU/L (Class 0); Codfish <0.10 kU/L (Class 0); Corn <0.10 kU/L (Class 0); Egg, Whole <0.10 kU/L (Class 0); Milk (Cow) <0.10 kU/L (Class 0); Mussels <0.10 kU/L (Class 0); Peanut <0.10 kU/L (Class 0); Pork <0.10 kU/L (Class 0); RNP Ab 0.2 AI (0.0-0.9); SJOGREN'S Anti-SS-A test < 0.2 AI (0.0-0.9); SJOGREN'S Anti-SS-B test < 0.2 AI (0.0-0.9); Salmon <0.10 kU/L (Class 0); Shrimp <0.10 kU/L (Class 0); Smith Ab <0.2 AI (0.0-0.9); Soybean <0.10 kU/L (Class 0); Tuna <0.10 kU/L (Class 0); Vitamin D 1,25-Dihydroxy 49.3 pg/mL (24.8-81.5); Wheat <0.10 kU/L (Class 0)
[2023-05-13 13:16] LABS: ALCA 17 units (0-60)
== END | disposition home or self-care (01) ==
PROVIDERS: PCP Student in an Organized Health Care Education/Training Program; Referring Provider Internal Medicine Gastroenterology; Visit Provider Internal Medicine Gastroenterology
DX: K59.00 Constipation, unspecified (principal); E80.6 Other disorders of bilirubin metabolism; Z80.0 Family history of malignant neoplasm of digestive organs
CPT/HCPCS: 36415; 80053; 82607; 82652; 82746; 82784; 82785; 82787; 83516; 83615; 84443; 84478; 84481; 85025; 85652; 86003; 86005; 86036; 86140; 86225; 86235; 86255; 86256; 86340; 86671

== ENCOUNTER → 2023-04-17 | Outpatient (CLI) | payer BC, SELFPAY ==
--- NOTE | 2023-04-17 12:48 | NM_ITS ---
CLINICAL: 32-year-old female with history of abdominal bloating. SEMI-SOLID PHASE 99m Tc SULFUR COLLOID GASTRIC EMPTYING STUDY COMPARISON: None available FINDINGS: The patient was administered 1.1 mCi of 99m Tc sulfur colloid mixed with oatmeal and consumed per os. Image acquisitions in the anterior-posterior projections were obtained for 60 minutes. There is prompt visualization of the stomach. There is no gastroesophageal reflux identified. The T ? raw data emptying was calculated to be 26.65 minutes, (Normal: 12-56 minutes). NM/Gastric Emptying Study IMPRESSION: 1. NORMAL 99m Tc sulfur colloid semi-solid phase (oatmeal) gastric emptying imaging examination. A. There is normal and preserved semi-solid phase gastric emptying compared to normal controls.. (Angie et al, J Nucl Med Tech 38: 186, 2010). Electronically Signed: Jf Durant DO at 23:59 EST ,
== END | disposition home or self-care (01) ==
PROVIDERS: PCP Student in an Organized Health Care Education/Training Program; Referring Provider Internal Medicine Gastroenterology; Visit Provider Internal Medicine Gastroenterology
DX: E80.6 Other disorders of bilirubin metabolism (principal); K59.00 Constipation, unspecified; Z80.0 Family history of malignant neoplasm of digestive organs
CPT/HCPCS: 78264; A9541

== ENCOUNTER 2024-06-17 05:30 | Day surgery (SDC) | payer OTHER, SELFPAY ==
--- NOTE | 2024-06-16 13:48 | PAT.ANE_ITS ---
Pre-Assessment Diagnosis/Proposed Procedure Planned Operative Procedure(s): EGD Anesthesia History Anesthesia History - endless bed drum sander: Anesthesia History - endless bed drum sander Hx Hospitalization No 06/16/24 08:14 Any Problems With Anesthesia No 06/16/24 08:14 Cholinesterase deficiency No 06/16/24 08:14 You/Your Family Experience No 06/16/24 08:14 fever (hyperthermia) with Relationship Recent Exposure to Contagious No 02/13/22 06:55 Disease Does patient have nerve No 06/16/24 08:14 stimulator Patient instructed to have device shut off --Does patient have Pacemaker or ICD? When Was Last Pacemaker Check QUESTION #4 FULL TEXT: You/Your Family Experience fever (hyperthermia) with Anesthesia Last Oral Intake Last Oral intake: Last Oral Intake NPO since Meds taken in AM with sips of water? Meds patient instructed to take am of surgery PONV PONV - endless bed drum sander: PONV - endless bed drum sander Female Yes 06/16/24 08:14 HX of Motion Sickness No 06/16/24 08:14 HX of N/V After Surgery No 06/16/24 08:14 Non-Smoker Yes 06/16/24 08:14 Duration of Surgery greater No 06/16/24 08:14 than 60 minutes Number of Risk Factors 2 06/16/24 08:14 PONV Score Moderate Risk 06/16/24 08:14 Height & Weight Height & Weight: Anesthesia: Height & Weight Height 5 ft 3 in 03/27/23 09:03 Respiratory Assessment Respiratory Assessment - endless bed drum sander: Respiratory Tract Infection Hx - endless bed drum sander Hx Respiratory Tract Infection No 06/16/24 08:14 STOP Sleep Apnea STOP Sleep Apnea - endless bed drum sander: STOP Sleep Apnea - endless bed drum sander Hx Hypertension Yes 06/16/24 08:14 Hx Sleep Apnea No 06/16/24 08:14 CPAP BIPAP Do you snore loudly (louder No 06/16/24 08:14 than talking or can be heard Do you often feel tired/ No 06/16/24 08:14 fatigued/ sleepy during daytime? Has anyone observed you stop No 06/16/24 08:14 breathing during sleep? STOP Results Negative 06/16/24 08:14 QUESTION #5 FULL TEXT : Do you snore loudly (louder than talking or can be heard through closed doors)? 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 Specify any problems Hx of Preganancy in last 3 No 06/16/24 08:14 Months Nurse Filling Out Transfusion [place] 06/16/24 08:14 & Questions: Date: 06/16/24 06/16/24 08:14 Time: 08:21 06/16/24 08:14 Patient unable to answer at this time (ie. confused, unrespo /Reproduction History /Reproductive History - endless bed drum sander: /Reproductive Hx- endless bed drum sander Hx Now No 06/16/24 08:14 Gestational Age (in weeks): EDC: Hx Hx Para Hx Section SAB No 06/16/24 08:14 [facility] Medical History (Updated 06/16/24 @ 08:21 by Maddie Cheng) Anxiety High cholesterol Heartburn Gastric reflux History of edema History of echocardiogram History of stress test Chest pain Wears contact lenses Wears glasses Alcohol use Chronic kidney disease History of renal disease Former smoker Fracture of arm Peripheral edema Orthostatic hypotension Hyperlipidemia Hyperglycemia Hyperbilirubinemia Fatigue Chorioamnionitis Diarrhea Constipation Hypertension Abdominal bloating Abdominal pain Home Medications ?Medication ?Instructions ?Recorded ?Last Taken ?Type amlodipine 5 mg-benazepril 10 mg 1 cap PO DAILY 03/09/23 History capsule multivitamin 1 tab PO DAILY 03/03/23 Unkn own History pantoprazole 40 mg tablet,delayed 40 mg PO BID #90 tab s 04/06/24 Unknown Rx release trazodone 50 mg tablet 50 mg PO QHS PRN PRN insomni a 06/16/24 Unknown History Allergy/AdvReac Type Severity Reaction Status Date / Time No Known Allergies Allergy Verified 06/16/24 08:12 Family History Father Cancer Hyperlipidemia FH: stomach cancer Mother Hypertension Surgical History Hx of colonoscopy History of dilation of urethra History of section Social History Smoking Status: Former smoker alcohol intake: current alcohol intake frequency: a few times a week Alcohol type: hard liquor Audit: Pertinent Findings Pertinent Findings EKG Perinent findings: September 19, 2023. Sinus rhythm. Left atrial enlargement. Stress test pertinent findings: November 13, 2023. Negative stress for ischemia. Patient achieved a workload of 12 METS. Echo (EF%) pertinent findings: November 13, 2023. Ejection fraction is 55%. Right ventricular systolic pressure is 19 mmHg. There is no aortic stenosis. Recommendation Anesthesia Recommendation Anesthesia recommendation: OPTIMIZED for anesthesia
[2024-06-17] VITALS (8 sets, daily range): BP systolic 117–144; BP diastolic 86–105; PULSE 78–96; RESP 16–18; TEMP 36.2–36.4; O2SAT 93–97; BMI 33.5
[2024-06-17 05:58] LABS: Internal QC Validated? YES +Cl - CLEAR BKGD; Pregnancy, Urine Negative Negative
[2024-06-17] MEDS: Lactated Ringers 1,000 ML 15 ML IV (06:06)
--- NOTE | 2024-06-17 06:30 | EGD_PTH ---
PATIENT: ESTEBAN CLEANING #:[id number] LOC: EN U#:[id number] AGE/SX: 33/F ROOM: RE06/17/[address]: Dr. Dmitriy Trinh DO : 1990 BED: DIS: 06/17/2024 SPEC #: [id number] RECD: 06/17/24 12:51 STATUS: CARIDAD CONRAD #: [id number] JULIANA: 06/17/24 06:[address]: Dmitriy Trinh DEPT: SURGICAL PATHOLOGY RECD BY: Denny Urbina ENTERED: 06/17/24 13:35 SP TYPE: EGD BIOPSY RYAN DR: Dr. Anthony Little DO Tissues: A - Duodenum, NOS B - Gastric mucous membrane C - Esophagus, NOS Procedures: Immunohistochemical Stains Surgery Specimen Level IV HEADER OPERATION: EGD with biopsy PRE-OP DIAGNOSIS: FH: stomach cancer TISSUE SUBMITTED: A- Duodenum biopsy, B- Gastric body biopsy, C- Distal esophagus biopsy MICROSCOPIC DIAGNOSIS A. Small bowel, duodenum, biopsy: * Normal villous architecture. * Negative for increased intraepithelial lymphocytes. B. Stomach, body, biopsy: * Oxyntic mucosa with chronic inflammation. * IHC negative for H pylori organisms. C. Esophagus, distal, biopsy: * Squamous mucosa with reactive changes. * Columnar mucosa negative for goblet cell metaplasia. * Negative for dysplasia. MICROSCOPIC DESCRIPTION Slides are reviewed. All matched controls reacted appropriately. These tests were developed and their performance characteristics determined by [facility]. They may not have been cleared or approved by the U.S. Food and Drug Administration. The FDA has determined that such clearance or approval is not necessary. The above immunohistochemical/dualISH markers are ordered and reviewed by the Pathologist. GROSS DESCRIPTION A. Received in formalin in a container labeled with the patient's name, date of , and duodenum biopsy are multiple small fragments of mucosal tissue measuring 0.5 x 0.3 x 0.2 cm in aggregate. Submitted in toto in A1. B. Received in formalin in a container labeled with the patient's name, date of , and gastric body biopsy for H. pylori and path are 2 cruz-pink strips of mucosal tissue each measuring 0.8 x 0.2 x 0.2 cm. Submitted in toto in B1. C. Received in formalin in a container labeled with the patient's name, date of , and distal esophagus biopsy are 2 cruz-pink fragments of mucosal tissue each measuring approximately 0.4 x 0.2 x 0.2 cm. Submitted in toto in C1. B 06-17-2024 CPT:86294v9,74236
--- NOTE | 2024-06-17 06:42 | PCM.PRE.AN2 ---
ASA Classification* ASA Classification ASA Classification: 2 Assessment & Plan Anesthesia* Anesthesia Assessment Anesthesia Assessment: Discussed sedation and/or anesthesia options, risks, benefits, and alternatives with patient/parents/legal guardian/POA. Questions invited. The patient/parents/legal guardian/POA seems to understand and agrees to proceed with anesthesia plan. Reviewed the physical assessment, medical history, allergy history and patient home medications list prior to surgery/procedure/anesthetic and documented any changes. Performed airway and anesthesia risk assessments. Anesthesia Type Anesthesia Type: MAC Anesthesia Focused Assessment* Temperature: 97.6 F Pulse Rate: 87 Blood Pressure: 144/105 Respiratory Rate: 17 Pulse Ox: 96 Airway Assessment Mouth opens: >3 cm Mallampati Score: II Focused Labs Anesthesia Preop lab: CBC WBC 7.4 K/mm3 (4.4-11.0) 03/27/23 09:48 03/27/23 RBC 4.78 M/mm3 (4.2-5.4) 03/27/23 09:48 03/27/23 Hgb 14.9 g/dL (12.0-15.0) 03/27/23 09:48 03/27/23 Hct 42.5 % (37-47) 03/27/23 09:48 03/27/23 Plt Count 275 K/mm3 (150-450) 03/27/23 09:48 03/27/23 CHEMISTRY Potassium 3.9 mmol/L (3.5-5.1) 03/10/24 09:28 03/10/24 Sodium 136 mmol/L (136-145) 03/10/24 09:28 03/10/24 BUN 13 mg/dL (7-18) 03/10/24 09:28 03/10/24 Creatinine 0.80 mg/dL (0.55-1.02) 03/10/24 09:28 03/10/24 Glucose 100 mg/dL (74-106) 03/10/24 09:28 03/10/24 TSH 1.40 uIU/mL (0.358-3.74) 03/27/23 09:48 03/27/23 COAG Urine Test Negative Negative 06/17/24 05:45 06/17/24 Pre-Assessment Diagnosis/Proposed Procedure Planned Operative Procedure(s): EGD Anesthesia History Anesthesia History - home health nurse: Anesthesia History - home health nurse Hx Hospitalization No 06/16/24 08:14 Any Problems With Anesthesia No 06/16/24 08:14 Cholinesterase deficiency No 06/16/24 08:14 You/Your Family Experience No 06/16/24 08:14 fever (hyperthermia) with Relationship Recent Exposure to Contagious No 06/17/24 06:12 Disease Does patient have nerve No 06/16/24 08:14 stimulator Patient instructed to have device shut off --Does patient have Pacemaker No 06/17/24 06:12 or ICD? When Was Last Pacemaker Check QUESTION #4 FULL TEXT: You/Your Family Experience fever (hyperthermia) with Anesthesia Last Oral Intake Last Oral intake: Last Oral Intake NPO since 00:00 06/17/24 06:12 Meds taken in AM with sips of No 06/17/24 06:12 water? Meds patient instructed to take am of surgery PONV PONV - home health nurse: PONV - home health nurse Female Yes 06/16/24 08:14 HX of Motion Sickness No 06/16/24 08:14 HX of N/V After Surgery No 06/16/24 08:14 Non-Smoker Yes 06/16/24 08:14 Duration of Surgery greater No 06/16/24 08:14 than 60 minutes Number of Risk Factors 2 06/16/24 08:14 PONV Score Moderate Risk 06/16/24 08:14 Height & Weight Height & Weight: Anesthesia: Height & Weight Height 5 ft 3 in 06/17/24 06:12 Weight: 86 kg 06/17/24 06:12 Body Mass Index (BMI) 33.5 06/17/24 06:12 Respiratory Assessment Respiratory Assessment - home health nurse: Respiratory Tract Infection Hx - home health nurse Hx Respiratory Tract Infection No 06/16/24 08:14 STOP Sleep Apnea STOP Sleep Apnea - home health nurse: STOP Sleep Apnea - home health nurse Hx Hypertension Yes 06/16/24 08:14 Hx Sleep Apnea No 06/16/24 08:14 CPAP BIPAP Do you snore loudly (louder No 06/16/24 08:14 than talking or can be heard Do you often feel tired/ No 06/16/24 08:14 fatigued/ sleepy during daytime? Has anyone observed you stop No 06/16/24 08:14 breathing during sleep? STOP Results Negative 06/16/24 08:14 QUESTION #5 FULL TEXT : Do you snore loudly (louder than talking or can be heard through closed doors)? 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 Specify any problems Hx of Preganancy in last 3 No 06/16/24 08:14 Months Nurse Filling Out Transfusion [place] 06/16/24 08:14 & Questions: Date: 06/16/24 06/16/24 08:14 Time: 08:21 06/16/24 08:14 Patient unable to answer at this time (ie. confused, unrespo /Reproduction History /Reproductive History - home health nurse: /Reproductive Hx- home health nurse Hx Now No 06/16/24 08:14 Gestational Age (in weeks): EDC: Hx Hx Para Hx Section SAB No 06/16/24 08:14 Active Medications Active Medications: Current Medications Generic Name Dose Route Start Last Admin Trade Name Freq PRN Reason Stop Dose Admin Lactated Ringer's 1,000 mls @ 15 mls/hr 06/17/24 06:00 06/17/24 06:06 IV 15 mls/hr .Q48H SATISH Administration PFSH Medical History Anxiety High cholesterol Heartburn Gastric reflux History of edema History of echocardiogram History of stress test Chest pain Wears contact lenses Wears glasses Alcohol use Chronic kidney disease History of renal disease Former smoker Fracture of arm Peripheral edema Orthostatic hypotension Hyperlipidemia Hyperglycemia Hyperbilirubinemia Fatigue Chorioamnionitis Diarrhea Constipation Hypertension Abdominal bloating Abdominal pain Home Medications ?Medication ?Instructions ?Recorded ?Last Taken ?Type amlodipine 5 mg-benazepril 10 mg 1 cap PO DAILY 09/18/21 06/16/24 History capsule multivitamin 1 tab PO DAILY 03/03/23 06/16/24 History pantoprazole 40 mg tablet,delayed 40 mg PO BID #90 tabs 04/06/24 06/16/24 Rx release trazodone 50 mg tablet 50 mg PO QHS PRN PRN insomnia 06/16/24 06/16/24 History Allergy/AdvReac Type Severity Reaction Status Date / Time No Known Allergies Allergy Verified 06/17/24 05:46 Family History Father Cancer Hyperlipidemia FH: stomach cancer Mother Hypertension Surgical History Hx of colonoscopy History of dilation of urethra History of section Social History Smoking Status: Former smoker alcohol intake: current alcohol intake frequency: a few times a week Alcohol type: hard liquor Review of Systems (Anesthesia) ROS Narrative System reviewed and no additional complaints, except as documented.
--- NOTE | 2024-06-17 07:00 | PCM.HP.STD ---
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 Prior workup OSH: ? US RUQ 7.8.22 without acute/chronic finding. ? HIDA 11.13. EF 85%. Trace enterogastric reflux. *BGI established 11.25.21 BM pattern alternate between constipation and loose stool; probiotic, collagen, bone broth ineffective. Notes inadequate fiber intake. Abdominal bloating and pain resolved following IUD removal. ? Biochemical 12.02.21 celiac WNL? t.bili H1.2, d. bili H0.32 ? CT abd/pel 12.02.21 colonic fecal retention; ovarian cyst versus dominant follicle. ? EGD/colonoscopy 02.13.22 EGD LA Grade A esophagitis; small hiatal hernia; gastritis; duodenitis. No path changes ? Colonoscopy congested mucosa, melanosis coli OV 2.8.23 linzess 72mcg (samples) OV 6.14.23 start doxycycline to address bloating; Linzess ineffective. Constipation overall well controlled with probiotic and OTC gut supplement. Hyperbilirubinemia possibly [place] ? Biochemical 6. CBC, haptoglobin, retic (H1.93), CMP, LDH, d. bili without pertinent abnormality.? T. bili H1.1 ? EGD 03.09.23 LA Grade B esophagitis; duodenitis. No path changes OV 8 patient has been doing well. She has a bm once a day and has periods of constipation. She is not taking anything for constipation. Heartburn has been manageable happening sporadically. Does not feel that pantoprazole is helping all the time. OV 2.. Pt ran out of pantoprazole and noticed her symptoms came back. Her bowels are manageable at this time with intermittent constipation and occasional diarrhea. She is not taking any constipation medications at this time. [facility] Medical History Anxiety High cholesterol Heartburn Gastric reflux History of edema History of echocardiogram History of stress test Chest pain Wears contact lenses Wears glasses Alcohol use Chronic kidney disease History of renal disease Former smoker Fracture of arm Peripheral edema Orthostatic hypotension Hyperlipidemia Hyperglycemia Hyperbilirubinemia Fatigue Chorioamnionitis Diarrhea Constipation Hypertension Abdominal bloating Abdominal pain Home Medications ?Medication ?Instructions ?Recorded ?Last Taken ?Type amlodipine 5 mg-benazepril 10 mg 1 cap PO DAILY 09/18/21 06/16/24 History capsule multivitamin 1 tab PO DAILY 03/03/23 06/16/24 History pantoprazole 40 mg tablet,delayed 40 mg PO BID #90 tabs 04/06/24 06/16/24 Rx release trazodone 50 mg tablet 50 mg PO QHS PRN PRN insomnia 06/16/24 06/16/24 History Allergy/AdvReac Type Severity Reaction Status Date / Time No Known Allergies Allergy Verified 06/17/24 05:46 Family History Father Cancer Hyperlipidemia FH: stomach cancer Mother Hypertension Surgical History Hx of colonoscopy History of dilation of urethra History of section Social History Smoking Status: Former smoker alcohol intake: current alcohol intake frequency: a few times a week Alcohol type: hard liquor ROS Constitutional Constitutional: Denies fatigue, fever(s), poor appetite, weight gain or weight loss Gastrointestinal Gastrointestinal: Denies belching, bloating, change in bowel habits, change in stool character, chewing difficulty, coffee ground emesis, constipation, cramping, diarrhea, dyspepsia, dysphagia, early satiety, excessive flatus, fecal incontinence, heartburn, hematemesis, hematochezia, hemorrhoids, loose stools, melena, nausea, odynophagia, rectal bleeding, tenesmus, vomiting or weight changes Vital Signs Vital Signs Vital Signs: 06/17/24 06:12 06/17/24 06:12 06/17/24 06:42 Temperature 97.6 F L 97.6 F L Temperature Source Temporal Pulse Rate 87 87 Respiratory Rate 17 17 Respiratory Pattern Normal Blood Pressure 144/105 H 144/105 H Blood Pressure Mean 118 Blood Pressure Source Monitor Blood Pressure Position Semi-Fowlers Blood Pressure Location Left Arm Pulse Ox 96 96 Oxygen Delivery Method Room Air Weight Weight: 189 lb 9.561 oz Body Mass Index (BMI) 33.5 Physical Exam Const alert, oriented x3, no apparent distress and healthy appearing General Appearance: cooperative GI normal to inspection, nondistended, normoactive bowel sounds, soft to palpation, non-tender and non-distended Percussion: normal to percussion Rectal Exam: deferred Results Lab / Micro Data Labs: Laboratory Results - last 24 hr 06/17/24 05:45: Urine Test Negative Assessment & Plan Assessment/Plan (1) FH: stomach cancer: PLAN: Assessment and Plan Assessment and Plan (1) FH: stomach cancer: Status: Chronic Plan: This is a 33 yo female pt here today for f/u regarding her GERD, alternating bowels and FH of gastric cancer. Pt did run out of her PPI and noticed some worsening in her symptoms. I refilled her pantoprazole today and increased it to 40 mg BID. She has yearly EGD for her family history of gastric cancer. Her father from gastric cancer. She tested positive for the genes. SHe notes her brother just recently had his stomach removed. She will be scheduled for one today as her last one was in Feb 2023. -Refill pantoprazole and increase dose -EGD -f/u after procedure (2) Altered bowel function: Status: Acute Medications: New pantoprazole 40 mg PO BID 90 tabs 1RF
--- NOTE | 2024-06-17 07:29 | OP.CCLET_ITS ---
06/17/2024 Anthony Little Do Re : Upper GI endoscopy procedure for Laura Cunningham [place] This procedure was performed on Monday, June 17, 2024. My impressions and recommendations are as follows: Impressions : - Z-line irregular, 40 cm from the incisors. Biopsied. - Erythematous mucosa in the gastric body. Biopsied. - Erythematous duodenopathy. Biopsied. Recommendations : - Discharge patient to home. - Resume previous diet. - Continue present medications. - Await pathology results. My findings are described in the full procedure note, which is enclosed. If I can be of further assistance, please feel free to contact me at . Sincerely, Dmitriy Trinh DO 06/17/2024 7:28:21 AM This report has been signed electronically.
--- NOTE | 2024-06-17 07:29 | OP.EGD_ITS ---
Patient Name: Laura Cunningham Procedure Date: 06/17/2024 6:10 AM Date of : 1990 Age: 33 Procedure: Upper GI endoscopy Indications: Epigastric abdominal pain Providers: Dmitriy Trinh DO Medicines: Monitored Anesthesia Care Patient Profile: This is a 33 year old female. Refer to note in patient chart for documentation of history and physical. Patient has symptoms of chronic abdominal cramping, chronic abdominal distention, chronic epigastric abdominal pain, chronic dyspepsia and chronic nausea. Complications: No immediate complications. Procedure: Pre-Anesthesia Assessment: - Prior to the procedure, a History and Physical was performed, and patient medications and allergies were reviewed. The patient is competent. The risks and benefits of the procedure and the sedation options and risks were discussed with the patient. All questions were answered and informed consent was obtained. Patient identification and proposed procedure were verified by the physician in the pre-procedure area. Mental Status Examination: alert and oriented. Airway Examination: normal oropharyngeal airway and neck mobility. Respiratory Examination: clear to auscultation. CV Examination: normal. Prophylactic Antibiotics: The patient does not require prophylactic antibiotics. Prior Anticoagulants: The patient has taken no anticoagulant or antiplatelet agents except for NSAID medication. ASA Grade Assessment: II - A patient with mild systemic disease. After reviewing the risks and benefits, the patient was deemed in satisfactory condition to undergo the procedure. The anesthesia plan was to use monitored anesthesia care (MAC). Immediately prior to administration of medications, the patient was re-assessed for adequacy to receive sedatives. The heart rate, respiratory rate, oxygen saturations, blood pressure, adequacy of pulmonary ventilation, and response to care were monitored throughout the procedure. The physical status of the patient was re-assessed after the procedure. After obtaining informed consent, the endoscope was passed under direct vision. Throughout the procedure, the patient's blood pressure, pulse, and oxygen saturations were monitored continuously. The Endoscope was introduced through the mouth, and advanced to the second part of duodenum. The upper GI endoscopy was accomplished without difficulty. The patient tolerated the procedure well. Scope In: 7:10:50 AM Scope Out: 7:18:38 AM Total Procedure Duration Time 0 hours 7 minutes 48 seconds Findings: The Z-line was irregular and was found 40 cm from the incisors. Biopsies were taken with a cold forceps for histology. Verification of patient identification for the specimen was done. Estimated blood loss was minimal. Patchy mildly erythematous mucosa without bleeding was found in the gastric body. Biopsies were taken with a cold forceps for histology. Biopsies were taken with a cold forceps for Helicobacter pylori testing. Verification of patient identification for the specimen was done. Estimated blood loss was minimal. Patchy mildly erythematous mucosa without active bleeding and with no stigmata of bleeding was found in the duodenal bulb. Biopsies were taken with a cold forceps for histology. Verification of patient identification for the specimen was done. Estimated blood loss was minimal. Impression: - Z-line irregular, 40 cm from the incisors. Biopsied. - Erythematous mucosa in the gastric body. Biopsied. - Erythematous duodenopathy. Biopsied. Recommendation: - Discharge patient to home. - Resume previous diet. - Continue present medications. - Await pathology results. Procedure Code(s): --- Professional --- 16106, Esophagogastroduodenoscopy, flexible, transoral; with biopsy, single or multiple CPT copyright 2021 [employer]. All rights reserved. The codes documented in this report are preliminary and upon glass washer and carrier review may be revised to meet current compliance requirements. Dmitriy Trinh DO 06/17/2024 7:28:21 AM This report has been signed electronically. Number of Addenda: 0 Note Initiated On: 06/17/2024 6:10 AM
--- NOTE | 2024-06-17 07:31 | PCM.POST.ANE ---
Anesthesia: Postop Eval I Current Vital Signs Temperature: 97.2 F Pulse Rate: 89 Blood Pressure: 117/93 Respiratory Rate: 18 Pulse Ox: 94 Oxygen Delivery Method: Room Air Assessment Airway patent: Yes Spontaneous unlabored respirations: Yes Mental status: Asleep nausea: No Vomiting: No Anesthesia Complication: No Fluid Hydration Crystalloid volume administer (ml): 300 Total IV fluid infused: 300 Progress Note Anesthesia document: Postop Eval 1 completed: Yes
--- NOTE | 2024-06-17 08:45 | PCM.POSTANE2 ---
Anesthesia Postop Eval I Sum Postop Eval Completion status Anesthesia document: Postop Eval 1 completed: Yes Anesthesia Postop Eval I Summary Anesthesia Postop Eval I Summary: Anesthesia Postop Eval I: Assessment Summary Airway patent Yes 06/17/24 07:32 [email or web address] Spontaneous unlabored Yes 06/17/24 07:32 [email or web address] respirations Mental status Asleep 06/17/24 07:32 [email or web address] nausea No 06/17/24 07:32 [email or web address] Vomiting No 06/17/24 07:32 [email or web address] Anesthesia Postop Eval I: Fluid Summary Crystalloid volume administer 300 06/17/24 07:32 [email or web address] (ml) Colloids volume administered ( ml) Blood Product volume administered (ml) Total IV fluid infused 300 06/17/24 07:32 [email or web address] Anesthesia Postop Eval I: Summary Notes Anesthesia Complication No 06/17/24 07:32 [email or web address] Anesthesia Complication Comment: Post-operative progress note Anesthesia: Postop Eval II Evaluation Mental status: Awake Pain Level: 0 nausea: No Vomiting: No
== END 2024-06-17 07:59 | disposition home or self-care (01) ==
LOC: EN 05:30 → AC 05:32
PROVIDERS: Anesthesiology; PCP Student in an Organized Health Care Education/Training Program; Referring Provider Student in an Organized Health Care Education/Training Program; Visit Provider Internal Medicine Gastroenterology
PROC: 0DJ08ZZ Inspection of Upper Intestinal Tract, Via Natural or Artificial Opening Endoscopic (ICD-10-PCS; CPT 43235; principal; 2024-06-17 06:25)
DX: K29.50 Unspecified chronic gastritis without bleeding (principal); Z87.891 Personal history of nicotine dependence; I12.9 Hypertensive chronic kidney disease with stage 1 through stage 4 chronic kidney disease, or unspecified chronic kidney disease; K21.9 Gastro-esophageal reflux disease without esophagitis; E78.00 Pure hypercholesterolemia, unspecified; N18.9 Chronic kidney disease, unspecified; Z79.899 Other long term (current) drug therapy; K59.9 Functional intestinal disorder, unspecified; Z80.0 Family history of malignant neoplasm of digestive organs
CPT/HCPCS: 43239; 81025; 88305; 88342; J2405

== ENCOUNTER → 2024-08-12 | Outpatient (CLI) | payer OTHER, SELFPAY ==
[2024-08-12 18:38] LABS: Absolute Lymphocyte Count 2.12 X10^3/uL (0.83-4.51); Absolute Neutrophil Count 5.3 X10^3/uL (2.0-7.7); Basophil# 0.07 X10^3/uL; Basophil% 0.8 % (0-1); Eosinophil# 0.21 X10^3/uL; Eosinophils% 2.5 % (0-5); Hematocrit 40.1 % (37-47); Hemoglobin 14.1 g/dL (12.0-15.0); Lymphocyte # 2.12 X10^3/ul (0.83-4.51); Lymphocyte % 25.2 % (19-41); Mean Corp Hgb Conc 35.2 g/dL (32-36); Mean Corpuscular Hgb 31.7 pg (27.0-32.0); Mean Corpuscular Volume 90.1 fL (81-99); Mean Platelet Vol. 9.8 fl (6.2-12.0); Monocyte# 0.66 X10^3/uL; Monocyte% 7.8 % (0-10); NRBC Flagged by Analyzer 0 % (0-5); Neutrophil # 5.33 X10^3/uL (2.7-7.7); Neutrophil % 63.3 % (47-70); Platelet Count 289 K/mm3 (150-450); RBC Distribution Width CV 11.1 % (11.6-14.6); RBC Distribution Width SD 36.8 fl (35.1-43.9); Red Blood Count 4.45 M/mm3 (4.2-5.4); White Blood Count 8.4 K/mm3 (4.4-11.0)
[2024-08-12 19:00] LABS: Erythrocyte Sedimentation Rate 14 mm/hr (0-30)
[2024-08-12 19:09] LABS: ALB/GLOB Ratio 1.5 RATIO (0.9-2.4); AST(SGOT) 19 U/L (<=31); Alanine Aminotransfer ALT/SGPT 16 U/L (<=34); Albumin, Serum 4.5 g/dL (3.5-5.0); Alkaline Phosphatase 64 U/L (35-104); Anion Gap 15 (5-15); BUN 22 mg/dL (4-19); BUN/Creat Ratio 28.3 RATIO (10-20); Calcium,Total 9.7 mg/dL (7.6-11.0); Carbon Dioxide 20.4 mmol/L (21.0-32.0); Chloride 101 mmol/L (98-108); Creatinine, Serum 0.76 mg/dL (0.70-1.20); EST Glomerular Filtration Rate 103 (>60); Glucose 98 mg/dL (70-99); Hepatitis B Surface Antigen Nonreactive (Nonreactive); Hepatitis C Antibody Nonreactive (Nonreactive); Potassium 4.2 mmol/L (3.3-5.1); Protein, Total 7.5 g/dL (5.9-8.4); Sodium Level 136 mmol/L (133-145); Total Bilirubin 0.82 mg/dL (0.00-1.30)
[2024-08-12 19:47] LABS: Rheumatoid Factor < 10.0 IU/mL (<15)
[2024-08-12 19:52] LABS: Hepatitis B Surface Antibody REAC
[2024-08-15 14:08] LABS: ANTINUCLEAR ANTIBODIES DIRECT Negative (Negative)
[2024-08-15 15:08] LABS: CCP IgG Antibodies 7 units (0-19)
== END | disposition home or self-care (01) ==
PROVIDERS: PCP Student in an Organized Health Care Education/Training Program; Referring Provider Internal Medicine Rheumatology; Visit Provider Internal Medicine Rheumatology
DX: M06.4 Inflammatory polyarthropathy (principal); I10 Essential (primary) hypertension
CPT/HCPCS: 36415; 80053; 85025; 85652; 86038; 86140; 86200; 86431; 86706; 86803; 87340